=== PATIENT | male | born 1970 | race American Indian/Alaskan Native ===

== ENCOUNTER 2018-01-10 00:03 | Emergency (ER) | payer OTHER ==
[2018-01-10] MEDS ORDERED: NORCO 5/325 ONE (02:40)
[2018-01-10] MEDS ORDERED: TORADOL IM ONE (03:49)
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
[2018-01-10 04:52] VITALS: BP 132/81
== END 2018-01-10 04:52 | disposition home or self-care (01) ==
LOC: ED 00:03
DX: S29.019A Strain of muscle and tendon of unspecified wall of thorax, initial encounter (principal); I10 Essential (primary) hypertension; V87.7XXA Person injured in collision between other specified motor vehicles (traffic), initial encounter; Y93.89 Activity, other specified; Y92.89 Other specified places as the place of occurrence of the external cause; Y99.8 Other external cause status
CPT/HCPCS: 96372; 99282; J1885